=== PATIENT | female | born 1990 | race Caucasian/White ===

== ENCOUNTER 2018-02-25 19:56 | Emergency (ER) | payer OTHER ==
[~2018-02-25] VITALS: Ht 170.2 cm; Wt 100.0 kg
[2018-02-25] MEDS ORDERED: rabies immune globulin/PF 150 unit/ml inj IMVAC STA ×2 (22:03→22:45)
[2018-02-25] MEDS ORDERED: rabies vaccine (PCEC)/PF 2.5 unit kit IMVAC ONE (22:05)
[2018-02-25 23:40] VITALS: BP 134/72
== END 2018-02-25 23:51 | disposition home or self-care (01) ==
LOC: EEVIPCON 19:57 → ER 19:57
DX: S61.051A Open bite of right thumb without damage to nail, initial encounter (principal); Z91.018 Allergy to other foods; W55.81XA Bitten by other mammals, initial encounter; Y93.89 Activity, other specified; Y92.89 Other specified places as the place of occurrence of the external cause; Y99.8 Other external cause status
CPT/HCPCS: 90375; 90471; 90675; 96372; 99284

== ENCOUNTER 2018-03-12 03:29 | Emergency (ER) | payer OTHER ==
[~2018-03-12] VITALS: Ht 170.2 cm; Wt 100.0 kg
[2018-03-12 03:39] VITALS: BP 143/77
[2018-03-12] MEDS ORDERED: rabies vaccine (PCEC)/PF 2.5 unit kit IMVAC ONE (06:50)
== END 2018-03-12 07:31 | disposition home or self-care (01) ==
LOC: ER 03:30
DX: Z23 Encounter for immunization (principal)
CPT/HCPCS: 90675; 99281

== ENCOUNTER 2018-03-12 10:43 | Emergency (ER) | payer OTHER ==
[~2018-03-12] VITALS: Ht 170.2 cm; Wt 106.2 kg
[2018-03-12 10:47] VITALS: BP 146/79
[2018-03-12] MEDS ORDERED: rabies vaccine (PCEC)/PF 2.5 unit kit IMVAC ONE (11:50)
== END 2018-03-12 12:36 | disposition home or self-care (01) ==
LOC: ER 10:43
DX: Z23 Encounter for immunization (principal); Z91.018 Allergy to other foods
CPT/HCPCS: 90471; 90675; 99283

== ENCOUNTER 2018-03-18 03:26 | Emergency (ER) | payer OTHER ==
[~2018-03-18] VITALS: Ht 167.6 cm; Wt 100.0 kg
[2018-03-18 03:29] VITALS: BP 141/80
[2018-03-18] MEDS ORDERED: rabies vaccine (PCEC)/PF 2.5 unit kit IMVAC ONE (03:45)
== END 2018-03-18 04:02 | disposition home or self-care (01) ==
LOC: ER 03:26
DX: Z23 Encounter for immunization (principal); Z91.018 Allergy to other foods
CPT/HCPCS: 90471; 90675; 99283

== ENCOUNTER 2018-05-18 20:44 | Emergency (ER) | payer OTHER ==
[~2018-05-18] VITALS: Ht 170.2 cm; Wt 98.0 kg
[2018-05-18] MEDS ORDERED: iohexol 300mg/ml 100ml inj. ONE (21:41)
[2018-05-18 21:55] LABS: BASOPHILS # (AUTO) 0.1 X10'3 (0-0.2); BASOPHILS % (AUTO) 0.6 % (0-1); EOSINOPHILS # (AUTO) 0.2 X10'3 (0-0.9); EOSINOPHILS % (AUTO) 1.2 % (0-6); HEMATOCRIT 39.9 % (35.0-45.0); HEMOGLOBIN 13.5 g/dl (12.0-16.0); LYMPHOCYTES # (AUTO) 2.3 X10'3 (1.1-4.8); LYMPHOCYTES % (AUTO) 17.9 % (21-51); MEAN CORPUSCULAR HEMOGLOBIN 28.5 PG (27.0-31.0); MEAN CORPUSCULAR HGB CONC 33.7 % (33.0-36.5); MEAN CORPUSCULAR VOLUME 84.3 FL (78-98); MEAN PLATELET VOLUME 9.1 FL (7.4-10.4); MONOCYTES # (AUTO) 0.8 X10'3 (0-0.9); MONOCYTES % (AUTO) 6.5 % (2-12); NEUTROPHILS # (AUTO) 9.4 X10'3 (1.8-7.7); NEUTROPHILS % (AUTO) 73.8 % (42-75); PLATELET COUNT 347 X10'3 (140-440); RED BLOOD COUNT 4.73 X10'6 (4.20-5.60); RED CELL DISTRIBUTION WIDTH 13.5 % (11.5-14.5); WHITE BLOOD COUNT 12.8 X10'3 (4.5-11.0)
[2018-05-18 22:08] LABS: ALANINE AMINOTRANSFERASE 34 U/L (12-78); ALBUMIN/GLOBULIN RATIO 0.9 (1.1-1.5); ALKALINE PHOSPHATASE 78 IU/L (46-116); ANION GAP 11 (8-16); ASPARTATE AMINO TRANSFERASE 16 U/L (10-37); BILIRUBIN,TOTAL 0.4 MG/DL (0.1-1.0); BLOOD UREA NITROGEN 9 MG/DL (7-18); BUN/CREATININE RATIO 8.6 (6.6-38.0); CALCIUM 9.5 MG/DL (8.5-10.1); CHLORIDE 100 MMOL/L (99-107); CREATININE 1.05 MG/DL (0.40-0.90); GLUCOSE 100 MG/DL (70-104); SODIUM 140 MMOL/L (135-145); TOTAL CARBON DIOXIDE 29.4 MMOL/L (24-32); TOTAL PROTEIN 8.5 G/DL (6.4-8.2); eGFR 64 ML/MIN
[2018-05-18 22:17] LABS: MONOTEST NEGATIVE (Neg)
[2018-05-18 22:26] LABS: HCG SERUM QL NEGATIVE
[2018-05-18] MEDS ORDERED: acetaminophen 325mg tablet PO ONE (23:20)
[2018-05-18 23:31] VITALS: BP 135/90
== END 2018-05-18 23:32 | disposition home or self-care (01) ==
LOC: ER 20:45
DX: R59.1 Generalized enlarged lymph nodes (principal); N28.9 Disorder of kidney and ureter, unspecified
CPT/HCPCS: 10022; 36415; 70491; 80053; 84703; 85025; 86308; 87070; 99285; J7030; Q9967